=== PATIENT | male | born 1965 | race Caucasian/White ===

== ENCOUNTER 2021-12-13 00:48 | Day surgery (SDC) | payer BC, SELFPAY ==
[2021-11-30 13:28] VITALS: BMI 24.4
--- NOTE | 2021-12-10 15:34 | PM.HPGS ---
History of Present Illness History of Present Illness Consent: Risks, benefits, and alternatives have been discussed and questions answered. Patient agrees to proceed with procedure. Chief complaint: hx colon polyps Narrative: Vinicius Angulo is a 56 year old male referred for colon cancer screening. He had a polyp removed about 5 years ago. Review of Systems Review of Systems: All systems reviewed & are unremarkable except as noted in HPI and below PMFSH Family History Family History Father Family history of cataracts Social History Social History Smoking status: Never smoker Second hand tobacco smoke exposure: No Alcohol intake: current Drinks per week: 4 Living arrangements: alone Spiritual care concerns: No Meds Home Medications and Allergies Home Medications Medication Instructions Recorded Confirmed Type multivitamin (Multiple Vitamins 1 tablet PO DAILY 09/19/19 11/30/21 History tablet) sildenafil (pulm.hypertension) 20 20 mg PO TID PRN Erectile 09/19/19 12/13/21 History mg tablet Dysfunction Allergies Allergy/AdvReac Type Severity Reaction Status Date / Time No Known Allergies Allergy Verified 11/30/21 13:25 Exam Const: General: alert Orientation/consciousness: patient oriented x3 Resp: Auscultation: clear to auscultation bilaterally Cardio: Rhythm: regular rhythm GI: GI Palp: Yes Soft to palpation and No Tenderness to palpation present (GI) Neuro: General: patient oriented x3 Assessment and Plan Assessment and plan (1) Colon cancer screening: Code(s): Z12.11 - Encounter for screening for malignant neoplasm of colon Status: Acute Assessment and Plan: Colonoscopy with possible biopsy or polypectomy or cautery or injection of substances.
[2021-12-13] MEDS: LACTATED RINGERS 1,000 ML 150 ML IV CONT (11:15)
[2021-12-13 11:19] VITALS: BP 128/82; PULSE 93; RESP 18; TEMP 36.3; O2SAT 99
--- NOTE | 2021-12-13 11:58 | WPDANESEPPF ---
Anes - Initial Pre Proc Eval Procedure: Operation Date: 12/13/21 12:30 Proposed Procedures p Screening Colonoscopy - Gerald Bean MD Date/Time: 12/13/21 11:58 Surgeon: Gerald Bean MD Pre Op Diagnosis: hx colon polyps Patient Data Age: 56 Gender: M Height: 1.85 m Weight: 81.9 kg Last Vital Signs Temp 97.3 F L 12/13/21 11:19 Pulse 93 12/13/21 11:19 Resp 18 12/13/21 11:19 BP 128/82 12/13/21 11:19 Pulse Ox 99 12/13/21 11:19 O2 Del Method Room Air 12/13/21 11:19 Allergies Allergy/AdvReac Type Severity Reaction Status Date / Time No Known Allergies Allergy Verified 11/30/21 13:25 Home Medications Medication Instructions Recorded Confirmed Type multivitamin (Multiple Vitamins 1 tablet PO DAILY 09/19/19 11/30/21 History tablet) sildenafil (pulm.hypertension) 20 20 mg PO TID PRN Erectile 09/19/19 12/13/21 History mg tablet Dysfunction Patient hx anesthesia problems: none Family hx anesthesia problems: none Results Review: All pre-operative results and documents have been reviewed as part of the pre-operative evaluation. [facility] Family History Family History Father Family history of cataracts Social History Social History Smoking status: Never smoker Second hand tobacco smoke exposure: No Alcohol intake: current Drinks per week: 4 Living arrangements: alone Spiritual care concerns: No Anes - Eval Final PreProcedure Day of Procedure 12/13/21 11:58 Patient weight: normal Heart: regular rate and rhythm Lungs: clear to auscultation Airway: Mallampati scale class II Neurological: alert and oriented Last oral intake: >/= 8 hours ASA classification: II Emergent: no Anesthetic plan: proceed Anesthesia type and monitoring: general GIVS and standard monitoring Results Review: All pre-operative results and documents have been reviewed as part of the pre-operative evaluation. Informed Consent: The patient's anesthetic plan and its attendant risks and benefits were discussed with the patient/family/POA. Questions were solicited and answers provided to the satisfaction of the patient/family/POA.
[2021-12-13 12:49] VITALS: BP 107/71; PULSE 79; RESP 18; O2SAT 97
[2021-12-13 12:59] VITALS: BP 102/72; PULSE 76; RESP 17; O2SAT 97
[2021-12-13 13:09] VITALS: BP 127/72; PULSE 72; RESP 17; O2SAT 100
== END 2021-12-13 13:13 | disposition home or self-care (01) ==
PROVIDERS: PCP Internal Medicine; Visit Provider Internal Medicine Gastroenterology
PROC: 0DJD8ZZ Inspection of Lower Intestinal Tract, Via Natural or Artificial Opening Endoscopic (ICD-10-PCS; CPT 45378; principal; 2021-12-13 12:30)
DX: Z12.11 Encounter for screening for malignant neoplasm of colon (principal); D12.5 Benign neoplasm of sigmoid colon
CPT/HCPCS: 45385; 88305; J2704; J7120